=== PATIENT | male | born 1985 | race Caucasian/White ===

== ENCOUNTER 2018-04-12 10:25 | Day surgery (SDC) | payer OTHER ==
[2018-04-12] MEDS ORDERED: LIDOCAINE 1% MDV 20ML VIAL SC (10:45)
[2018-04-12] MEDS ORDERED: LR 1,000 ML IV ×2 (10:45→13:30)
[2018-04-12] MEDS ORDERED: LIDOCAINE 2% INJ 100 MG/5 ML SDV (FOR ANES.) As Ordered (11:11)
[2018-04-12] MEDS ORDERED: fentaNYL 100 MCG/2 ML INJECTION (J3010) As Ordered (11:11)
[2018-04-12] MEDS ORDERED: ROCURONIUM BROMIDE 50 MG/5 ML VIAL As Ordered (11:11)
[2018-04-12] MEDS ORDERED: ONDANSETRON 4MG/2ML VIAL (J2405) As Ordered ×2 (11:11→13:10)
[2018-04-12] MEDS ORDERED: dexameTHASONE 4 MG/ML 1ML VIAL (J1100) As Ordered (11:11)
[2018-04-12] MEDS ORDERED: PROPOFOL 200 MG/20 ML VIAL As Ordered ×2 (11:11→11:23)
[2018-04-12] MEDS ORDERED: METOCLOPRAMIDE INJ 10MG/2ML VIAL (J2765) As Ordered (11:11)
[2018-04-12] MEDS ORDERED: MIDAZOLAM INJ 2 MG/2 ML VIAL (J2250) As Ordered (11:11)
[2018-04-12] MEDS: dexameTHASONE 4 MG/ML 1ML VIAL (J1100) IV (11:20)
[2018-04-12] MEDS ORDERED: GLYCOPYRROLATE INJ 0.2 MG/ML 2 ML VIAL As Ordered ×2 (11:22)
[2018-04-12] MEDS ORDERED: NEOSTIGMINE 10 MG/10 ML VIAL (J2710) As Ordered (11:22)
[2018-04-12] MEDS: EPINEPHrine 1MG/ML INJ 30ML MD-VIAL As Ordered (11:28)
[2018-04-12] MEDS: METHYLENE BLUE 0.5% (5MG/ML) 10 ML AMP (PROVAYBLUE)(Q9968 PER 1MG) As Ordered (11:28)
[2018-04-12] MEDS: SODIUM CHLORIDE 0.9% NASAL GEL 15GM (AYR) As Ordered (12:15)
[2018-04-12] MEDS: LIDOCAINE W/EPINEPHRINE 1% 20ML VIAL As Ordered (12:31)
[2018-04-12] MEDS: LR 1,000 ML IV (12:56)
[2018-04-12] MEDS: fentaNYL 100 MCG/2 ML INJECTION (J3010) IV ×4 (13:30→13:45)
[2018-04-12] MEDS: PERCOCET 5MG/325MG TAB PO ×2 (13:30→14:16)
[2018-04-12] MEDS ORDERED: MORPHINE 10 MG/ML 1ML VIAL (J2270) IV (13:30)
[2018-04-12] MEDS: ONDANSETRON 4MG/2ML VIAL (J2405) IV (13:30)
== END 2018-04-12 15:56 | disposition home or self-care (01) ==
LOC: M SDC 10:25
DX: J34.2 Deviated nasal septum (principal); J34.3 Hypertrophy of nasal turbinates
CPT/HCPCS: 30520